=== PATIENT | female | born 2000 | race American Indian/Alaskan Native ===

== ENCOUNTER 2021-08-08 05:36 | Inpatient (IN) | payer OTHER ==
[2021-08-04 10:46] LABS: Hematocrit 30.2 % (30.3-42.9); Hemoglobin 9.5 gm/dl (10.1-14.3); Mean Corpuscular HGB Conc 32 % (30-34); Mean Corpuscular Volume 75 fl (79-97); Platelet Count 381 K/mm3 (140-440); Red Blood Count 4.01 M/mm3 (3.65-5.03); Red Cell Distribution Width 16.1 % (13.2-15.2)
--- NOTE | 2021-08-07 21:21 | History and Physical Report ---
History of Present Illness Date of examination: 08/02/21 History of present illness: Patient admitted for repeat section. Patient informed the risks of the surgery include bleeding possibly bleeding heavy enough to require blood transfusion, infection possible damage to bowel bladder ureter. Patient understands that due to her previous surgery she is an increased risks of adjacent organ damage. Patient's questions answered. Patient understands and desires to proceed. Menstrual History Regularity: regular Menses every: 28 days Duration: 5 LMP: 11/05/2020 LMP reliability: definite LMP character: normal test type: urine test Date: 12/21/2020 BC at conception: none Planned ? no EDC Calculations LMP: 08/12/2021 EDC Confirmation: 08/12/2021 Past History : 2 Term Births: 1 Premature Births: 0 Living Children: 1 Para: 1 Mult. Births: 0 Prev : 1 Aborta: 0 Elect. Ab: 0 Spont. Ab: 0 Ectopics: 0 # 1 Delivery date: 05/21/2019 Weeks Gestation: 39 labor: no Delivery type: Hours of labor: 72 Anesthesia type: epidural Delivery location: [facility] Sex: Male weight: 7-8 Name: Anamika Comments: Failed Induction Elevated blood pressure Past Medical History: Negative Past Medical History Past Surgical History: (04/2019) Family History Summary: Other Family Member - Has No Family History of Ovarvian Cancer - Entered On: 03/15/2021 Other Family Member - Has No Family History of Colon Cancer - Entered On: 03/15/2021 Other Family Member - Has No Family History of Breast Cancer - Entered On: 03/15/2021 Other Family Member - Has Family History of Hypertension - Entered On: 03/15/2021 Other Family Member - Has Family History of Diabetes - Entered On: 03/15/2021 Other Family Member - Has Family History of CVA or Stroke - Entered On: 03/15/2021 Social History: Marital Status: Single Children: 1 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 Risk Factors: Smoked Tobacco Use: Never smoker Smokeless Tobacco Use: Never Counseled to Quit/Cut Down: yes Passive Smoke Exposure: no HIV High Risk Behavior: low risk Caffeine Use: 0 drinks per day Exercise: no Seatbelt Use: 100 % Alcohol Use: no Drug Use: no Past Medical History Surgery (Non-mold swabber): (04/2019) Abnormal PAP: negative Uterine Anomaly: negative Social Hx: Marital Status: Single Children: 1 Occupation: [employer] Smoking History: Patient has never smoked. Infection History Hx of STD: none HIV Risk Eval: low risk Hepatitis B Risk Eval: low risk Personal hx. of genital herpes: no Genetic History Congenital Heart Defect: Mom: no Dad: no Robert Disease: Mom: no Dad: no Thalassemia Mom: no Dad: no Neural Tube Defect Mom: no Dad: no Down's Syndrome Mom: no Dad: no Dallas-Sachs Mom: no Dad: no Sickle Cell Disease/Trait Mom: no Dad: no Hemophilia Mom: no Dad: no Muscular Dystrophy Mom: no Dad: no Cystic Fibrosis Mom: no Dad: no Joyce Chorea Mom: no Dad: no Mental Retardation Mom: no Dad: no Fragile X Mom: no Dad: no Other Genetic/Chromosomal Disorder Mom: no Dad: no Child w/other defect Mom: no Dad: no Enviromental Exposures Xray Exposure: no Chemical/Other Exposure: no Exposure to Cat Liter: no Hx of Parvovirus (Fifth Disease): no Current Allergies (reviewed today): No known allergies Past History Past Medical History: other (SEE HPI) Past Surgical History: other (SEE HPI) CHIP WASHER History: other (SEE HPI) Family/Genetic History: other (SEE HPI) Social history: full code, other (SEE HPI) - Obstetrical History Expected Date of Delivery: 08/12/21 Actual Gestation: 39 Week(s) 3 Day(s) : 2 Para: 1 Hx # Term Pregnancies: 1 Number of Pregnancies: 0 Spontaneous Abortions: 0 Induced : 0 Number of Living Children: 1 Medications and Allergies Allergies Allergy/AdvReac Type Severity Reaction Status Date / Time shellfish derived Allergy Anaphylaxis Verified 08/03/21 17:19 Home Medications Medication Instructions Recorded Confirmed Last Taken Type Vit-Fe Fumar-FA [ 1 tab PO QDAY 08/03/21 08/03/21 Unknown History Vitamin] Active Meds: Active Medications Citric Acid/Sodium Citrate (Bicitra Oral Liqd 30ml) 30 ml PO ONCE NR Stop: 08/08/21 20:00 Famotidine (Famotidine 20 Mg/2 Ml Inj) 20 mg IV ONCE NR Stop: 08/08/21 20:00 Oxytocin/Sodium Chloride (Pitocin/Ns 30 Unit/500ml) 30 units in 500 mls @ 0 mls/hr IV TITR MIESHA Cefazolin Sodium 3 gm/ Sodium (Chloride) 100 mls @ 100 mls/30 min IV PREOP NR; Protocol Stop: 08/08/21 20:00 Metoclopramide HCl (Metoclopramide 10 Mg/2 Ml Inj) 10 mg IV ONCE NR Stop: 08/08/21 20:00 - Vital Signs Vital signs: Vital Signs Temp Pulse Resp BP Pulse Ox 97.9 F 87 20 133/77 99 08/04/21 10:30 08/04/21 10:30 08/04/21 10:30 08/04/21 10:30 08/04/21 10:30 Temp Pulse Resp BP Pulse Ox 97.9 F 87 20 133/77 99 08/04/21 10:30 08/04/21 10:30 08/04/21 10:30 08/04/21 10:30 08/04/21 10:30 - Physical Exam Breasts: Positive: deferred Cardiovascular: Regular rate Lungs: Positive: Normal air movement Abdomen: Positive: normal appearance Genitourinary (Female): Positive: normal external genitalia Uterus: Positive: enlarged - Obstetrical FHR: auscultation normal Uterine Contraction Pattern: Absent Results Result Diagrams: 08/04/21 10:00 All other labs normal. Assessment and Plan - Patient Problems (1) Previous delivery affecting , antepartum Current Visit: No Status: Acute Plan to address problem: Discuss the risks of the surgery including infection, bleeding possibly heavy enough to require a blood transfusion, possible damage to bowel, bladder or ureter. Patient understands her risks of adjacent organ damage is increased due to her previous surgery(ies) Her questions were answered. Patient understands and desires to proceed (2) BMI 40.0-44.9, adult Current Visit: No Status: Chronic
[~2021-08-08 05:36] MED LIST: LACTATED RINGERS 1,000 ML IV SCH
[2021-08-08] MEDS ORDERED: HYDROmorphone 1 MG/1 ML INJ IV PRN (06:05)
[2021-08-08] MEDS ORDERED: ONDANSETRON 4 MG/2 ML INJ IV PRN ×2 (06:05→11:29)
[2021-08-08] MEDS ORDERED: NALOXONE 0.4 MG/1 ML INJ IV PRN ×2 (06:05→11:29)
[2021-08-08] MEDS ORDERED: PROMETHAZINE 25 MG RECT SUPP PR PRN (06:05)
[2021-08-08] MEDS ORDERED: PROMETHAZINE 25 MG TAB PO PRN (06:05)
[2021-08-08] MEDS ORDERED: NalbUPHINE 10 MG/1 ML INJ IV PRN (06:05)
[2021-08-08] MEDS ORDERED: diphenhydrAMINE 50 MG/ML VIAL IV PRN (06:05)
[2021-08-08] MEDS ORDERED: BUPIVACAINE/PF (0.5%) 5 MG/1 ML 30 ML VIAL INFILTRATI ONE (06:21)
[2021-08-08] MEDS ORDERED: ONDANSETRON 4 MG/2 ML INJ ONE (06:21)
--- NOTE | 2021-08-08 06:35 | Anesthesia Day of Surgery ---
Anesthesia Day of Surgery - Day of Surgery Patient Examined: Yes Patient H&P Reviewed: Yes Patient is NPO: Yes Beta Blockers: No Cardiac Clearance: No Pulmonary Clearance: No Tim's Test: N/A
--- NOTE | 2021-08-08 06:36 | Anesthesia Consultation ---
Anesthesia Consult and Med Hx Date of service: 08/08/21 - Airway Anesthetic Teeth Evaluation: Good ROM Head & Neck: Adequate Mental/Hyoid Distance: Adequate Mallampati Class: Class II Intubation Access Assessment: Probably Good - Pulmonary Exam CTA: Yes - Cardiac Exam Cardiac Exam: RRR - Pre-Operative Health Status ASA Pre-Surgery Classification: ASA2 Proposed Anesthetic Plan: Spinal - Pulmonary Hx Smoking: No Hx Asthma: No COPD: No Hx Pneumonia: No Hx Sleep Apnea: No - Cardiovascular System Hx Hypertension: No Hx Heart Attack/AMI: No Hx Angina: No - Central Nervous System Hx Seizures: No Hx Psychiatric Problems: No - Gastrointestinal Hx Gastroesophageal Reflux Disease: No - Endocrine Hx Renal Disease: No Hx End Stage Renal Disease: No Hx Liver Disease: No Hx Insulin Dependent Diabetes: No Hx Non-Insulin Dependent Diabetes: No Hx Hypothyroidism: No Hx Hyperthyroidism: No - Hematic Hx Anemia: No Hx Sickle Cell Disease: No - Other Systems Hx Alcohol Use: No Hx Cancer: No Hx Obesity: Yes - Additional Comments Anesthesia Medical History Comments: previous c/s
[2021-08-08] MEDS ORDERED: BICITRA ORAL LIQD 30ML PO NR (07:07)
[2021-08-08] MEDS ORDERED: METOCLOPRAMIDE 10 MG/2 ML INJ IV NR (07:07)
[2021-08-08] MEDS ORDERED: FAMOTIDINE 20 MG/2 ML INJ IV NR (07:07)
[2021-08-08] MEDS ORDERED: ceFAZolin 1 GM VIAL ONE (07:45)
[2021-08-08] MEDS ORDERED: PHENYLEPHRINE/NS 1,000 MCG/10 ML SYRINGE (OR USE) IV ONE (08:00)
[2021-08-08] MEDS ORDERED: ceFAZolin/STERILE WATER 2 GM/20 ML SYRINGE IV ONE (08:00)
[2021-08-08] MEDS ORDERED: OXYTOCIN DRIP 30 UNITS/500 ML BAG IV SCH ×2 (08:00→11:29)
[2021-08-08] MEDS ORDERED: ePHEDrine SULFATE 50 MG/1 ML INJ ONE (08:03)
[2021-08-08] MEDS ORDERED: KETOROLAC 30 MG/1 ML INJ ONE (08:12)
[2021-08-08] MEDS ORDERED: WATER FOR IRRIG STERILE 1,500 ML BOTTLE IR ONE (08:20)
[2021-08-08] MEDS ORDERED: SODIUM CHLORIDE 0.9% IRR 1,500 ML BOTTLE IR ONE (08:20)
--- NOTE | 2021-08-08 09:34 | Progress Note ---
Spinal Anesthesia Block - Spinal Anesthesia Block Start Time: 07:50 Stop Time: 07:55 Performed by:: SAVAGE LEONAROD Procedure: Spinal anesthesia block is being performed for [c/s]. H&P, labs have been reviewed. Patient's questions and concerns have been answered. Informed consent has been performed. Timeout has was performed. Patient in sitting position on side of bed. Sterile prep and drape was performed. 3 mL 1% lidocaine skin wheal at L [3]-L [4]. Needle introducer advanced. 24-gauge spinal needle advanced, [+] CSF [-] blood. [Marcaine 10mg and Precedex 5mcg] Spinal dose was given. All needles removed. Patient tolerated procedure well.
[2021-08-08] MEDS ORDERED: WITCH HAZEL/ GLYCERIN PAD TP PRN (11:29)
[2021-08-08] MEDS ORDERED: LANOLIN/ZINC/DIMETHICONE (LANSINOH) 7 GM TP PRN (11:29)
[2021-08-08] MEDS ORDERED: MAGNESIUM HYDROXIDE (MOM) ORAL LIQD UDC PO PRN (11:29)
[2021-08-08] MEDS ORDERED: SIMETHICONE 80 MG CHEW TAB PO PRN (11:29)
[2021-08-08] MEDS ORDERED: ceFAZolin/NS 1 GM/50 ML 1 GM/50 ML BAG IV SCH (11:29)
[2021-08-08] MEDS: D5W/LACTATED RINGERS 1,000 ML IV SCH ×2 (12:51→20:14)
--- NOTE | 2021-08-08 13:33 | Operative Report ---
Operative Report Operative Report: Date of procedure: August 08, 2021 Pre-operative diagnosis: Intrauterine at 39 weeks with previous ce sarean section and BMI of greater than 40 Post-operative diagnosis: Same Procedure name(s): Repeat low transverse section Surgeon: Dimas Chinchilla MD Academic Specialist: JOSE Anesthesia: Spinal EBL: Quantitative blood loss equals 517 cc Complications: None Findings: Patient with normal uterus tubes and ovaries bilaterally. Female weight 7 pounds 3 ounces Apgars 9 at 1 minute and 9 at 5 minutes Specimen(s): None Procedure: The patient was brought to the operating room. A spinal was placed without any complications. She was then placed in left lateral tilt. Prepped and draped in the usual sterile manner. Timeout was performed. After testing for adequate anesthesia level, a Pfannenstiel incision was made through her previous scar. This incision was taken down to the fascia. The fascia was then nicked in the midline. This incision was extended out laterally with Cooley scissors. The fascia was then sharply and bluntly from the underlying rectus muscles. The rectus muscles were bluntly and sharply . The peritoneum was then entered with the cement grinding mill operator's fingers. This incision was spread vertically with care not to damage the bladder below. The bladder flap was then formed sharply and bluntly with Metzenbaum scissors. The Genaro self- retaining tractor was then placed without any difficulty. A transverse incision was made in lower uterine segment. This incision was extended laterally with the operators fingers. The amniotic sac was then entered bluntly with the cement grinding mill operator's fingers. The was delivered from the vertex position. Bulb suction on the mother's abdomen. Cord was double clamped and cut. The was then passed to the nursery personnel who were in attendance. The above scores were given by the nursery personnel. The placenta was then bluntly removed. The uterus was then externalized and wiped clean the remaining products. The uterine incision was closed in layers. The first incision was closed in a locking manner using 0 Vicryl. This was followed by imbricating stitch also with 0 Vicryl. This closure was hemostatic. The bladder flap was copiously irrigated and found to be hemostatic. The pelvis was copiously irrigated and found to be hemostatic. The uterus was then placed back to the patient's abdomen. The retractors were removed. The rectus muscles were inspected and found to be hemostatic. The fascia was then closed in a running manner using 0 Vicryl. This incision was hemostatic irrigation Bovie. The skin was reapproximated with 4-0 Vicryl subcuticularly. The patient tolerated procedure well. Her urine was clear. The infant was admitted to the well baby nursery. The patient was accompanied to recovery room in good condition. Instrument count correct x3.
[2021-08-08] MEDS: KETOROLAC 30 MG/1 ML INJ IV SCH ×2 (16:27→23:15)
[2021-08-08] MEDS: oxyCODONE /ACETAMINOPHEN 5-325MG TAB PO PRN (20:13)
[2021-08-08 20:47] LABS: Hematocrit 28.6 % (30.3-42.9); Hemoglobin 8.8 gm/dl (10.1-14.3)
[2021-08-08] MEDS ORDERED: ceFAZolin/NS 1 GM/50 ML 1 GM/50 ML BAG IV ONE (23:51)
[2021-08-09] MEDS: oxyCODONE /ACETAMINOPHEN 5-325MG TAB PO PRN ×3 (03:53→23:48)
[2021-08-09] MEDS: KETOROLAC 30 MG/1 ML INJ IV SCH (05:45)
--- NOTE | 2021-08-09 09:52 | Progress Note ---
Assessment and Plan pt doing well, no complaints. dressing D&I, lochia scant, fundus firm, postop H&H 8.8/28.6 (asymptomatic anemia d/t acute blood loss), VSSAF. - Patient Problems (1) delivery delivered Current Visit: Yes Status: Acute Plan to address problem: continue postop pathway advance diet and activity as tolerated shower and remove dressing today anticipate d/c home tomorrow Subjective - Subjective Date of service: 08/09/21 Principal diagnosis: postop day #1 s/p repeat c/s Patient reports: appetite normal, voiding normally, pain well controlled, flatus, ambulating normally, no dizzy ambulation, no nauseated : doing well, nursing well Objective - Vital Signs Latest vital signs: Vital Signs Temp Pulse Resp BP BP Pulse Ox Pulse Ox 08/09/21 08:06 99 08/09/21 07:55 97.7 F 69 20 111/57 100 08/09/21 04:43 97.8 F 69 18 121/61 99 08/09/21 01:34 98.1 F 77 18 111/47 99 08/08/21 20:05 98.5 F 98 H 18 119/58 08/08/21 19:55 97 08/08/21 16:32 97.9 F 79 18 107/65 100 08/08/21 16:27 20 08/08/21 11:10 98.5 F 73 20 118/65 98 98 08/08/21 10:20 97.7 F 67 16 120/73 100 08/08/21 10:05 97.6 F 69 15 120/74 98 08/08/21 09:50 97.5 F L 81 17 119/83 98 Intake and Output 08/08/21 08/09/21 08/09/21 23:59 07:59 15:59 Intake Total 1402.917 600 Output Total 2400 1000 Balance -997.083 -400 Intake: IV 922.917 D5lr 1,000 ml @ 125 mls/ 922.917 hr IV DIRECT MIESHA Rx#: [id number] Oral 360 Intake, Free Water 480 240 Output: Urine 2400 1000 Indwelling Catheter 2000 Void 400 1000 Other: Total, Intake Amount 360 Total, Output Amount 400 600 # Voids Void 3 - Exam Breasts: Present: normal, Cardiovascular: Present: Regular rate Lungs: Present: Normal air movement Abdomen: Present: normal appearance, soft Vulva: both: normal Uterus: Present: normal, firm, fundal height above umbilicus Extremities: Present: normal Incision: Present: normal, dry, dressed - Labs Labs: Abnormal lab results 08/08/21 Range/Units 20:27 Hgb 8.8 L (10.1-14.3) gm/dl Hct 28.6 L (30.3-42.9) %
[2021-08-09] MEDS: PRENATAL VIT27-FE FUMARATE-FOLIC ACID VIT TAB PO SCH (10:43)
[2021-08-09] MEDS: FERROUS SULFATE 325 MG TAB PO SCH ×2 (10:43→22:00)
[2021-08-09] MEDS: IBUPROFEN 600 MG TAB PO PRN (20:26)
[2021-08-10] MEDS: IBUPROFEN 600 MG TAB PO PRN (08:05)
--- NOTE | 2021-08-10 08:41 | Discharge Summary ---
Providers - Providers Date of Admission: 08/08/21 05:36 Date of discharge: 08/10/21 Attending physician: KIKI GILES 08/08/21 11:29 Consult to Splash Line Operator [CONS] Routine Reason For Exam: Primary care physician: RAZIA MIN MD Hospitalization Reason for admission: section, IUP at term Delivery: Procedure: section, repeat low transverse Episiotomy: none Laceration: none Incision: normal, dry, intact Other procedures: none complications: none Discharge diagnosis: IUP at term delivered [place] baby: female Condition at discharge: Good Disposition: 01 HOME / SELF CARE / HOMELESS - Discharge Diagnoses (1) delivery delivered Status: Acute (2) BMI 40.0-44.9, adult Status: Chronic Plan - Discharge Medications Prescriptions: Ferrous Sulfate [Feosol 325 MG tab] 325 mg PO BID #60 tablet Ibuprofen [Motrin] 800 mg PO TID PRN #30 tablet PRN Reason: Pain oxyCODONE /ACETAMINOPHEN [Percocet 5/325 mg] 1 tab PO Q6HR PRN #20 tablet PRN Reason: Pain - Provider Discharge Summary Activity: routine, no sex for 6 weeks, no heavy lifting 4 weeks, no strenuous exercise Diet: routine Instructions: routine Additional instructions: [] Smoking cessation referral if applicable(refer to patient education folder for contact #) [] Refer to [facility]'s [facility] Booklet Call your doctor immediately for: * Fever > 100.5 * Heavy vaginal bleeding ( >1 pad per hour) * Severe persistent headache * Shortness of breath * Reddened, hot, painful area to leg or breast * Drainage or odor from incision. * Keep incision clean and dry at all times and follow doctor's instructions regarding bathing/showering Congratulations! Please call [phone] with any questions or concerns. Please attend your postoperative visit as scheduled for 1 week . Thank you! - Follow up plan Follow up: RAZIA MIN MD [Primary Care Provider] - 7 Days
--- NOTE | 2021-08-10 09:34 | Post Anesthesia Evaluation ---
- Post Anesthesia Evaluation Patient Participated: Yes Airway Patent: Yes Stable Respiratory Function: Yes Nausea/Vomiting: No Temp > 96.8F: Yes Pain Manageable: Yes Adequeate Hydration: Yes Anesthesia Complications: No Block Receding Appropriately: Yes Patient on Ventilator: No
[2021-08-10] MEDS: PRENATAL VIT27-FE FUMARATE-FOLIC ACID VIT TAB PO SCH (09:44)
[2021-08-10] MEDS: FERROUS SULFATE 325 MG TAB PO SCH (09:44)
[2021-08-10 11:26] VITALS: BP 114/78
== END 2021-08-10 11:35 | disposition home or self-care (01) | DRG 766 ==
LOC: APU 05:36 → OB 10:56
PROVIDERS: ADMIT Obstetrics & Gynecology; ATTEND Obstetrics & Gynecology
PROC: 10D00Z1 Extraction of Products of Conception, Low, Open Approach (ICD-10-PCS; principal; 2021-08-08)
DX: O34.211 Maternal care for low transverse scar from previous cesarean delivery (principal); Z37.0 Single live birth; Z20.822 Contact with and (suspected) exposure to COVID-19; O99.214 Obesity complicating childbirth; Z3A.39 39 weeks gestation of pregnancy
CPT/HCPCS: 36415; 59025; 85014; 85018; 85027; 86592; 86850; 86900; 86901; 96360; 96365; 99211; G0378; J3490; J7060; J7121; C1765; G0463; J0690; J1885; J2370; J2405; J2765; U0003